=== PATIENT | female | born 1990 | race Caucasian/White ===

== ENCOUNTER 2017-11-06 03:25 | Emergency (ER) | payer SELFPAY ==
[~2017-11-06] VITALS: Ht 162.6 cm; Wt 56.7 kg
[2017-11-06 03:40] VITALS: BP 146/87
[2017-11-06] MEDS ORDERED: LORazepam Inj 2mg/ml 1ml IV ONE (03:45)
--- NOTE | 2017-11-06 03:47 | Emergency Room Report ---
History of Present Illness General Chief Complaint: General Complaint Source: Patient Present Illness HPI Patient presents with friend The friend of the patient called 911 After smoking marijuana the patient had felt strange reports that her tongue felt swollen She also had complaint of shortness of breath and paramedics were summoned Upon arrival the patient is anxious and tearful Reports that she has a sensation of doom Denies any vomiting or diarrhea denies any fevers or chills Patient does not smoke marijuana on a regular basis Allergies: Coded Allergies: No Known Allergies (Unverified , 11/06/17) Patient History Past Medical History: see triage record Pertinent Family History: none Last Menstrual Period: 11/02/17 Now: No Reviewed Nursing Documentation: PMH: Agreed; PSxH: Agreed Nursing Documentation-PMH Past Medical History: No Stated History Review of Systems All Other Systems: negative except mentioned in HPI Physical Exam Vital Signs Date Time Temp Pulse Resp B/P (MAP) Pulse Ox O2 Delivery O2 Flow Rate FiO2 11/06/17 03:24 98.1 137 20 146/87 100 Room Air 98.1 Sp02 EP Interpretation: reviewed, normal General Appearance: mild distress - Appears anxious Head: normocephalic, atraumatic Eyes: bilateral eye PERRL, bilateral eye EOMI ENT: hearing grossly normal, normal pharynx Neck: full range of motion, supple Respiratory: lungs clear Cardiovascular #1: regular rate, rhythm, no edema Gastrointestinal: non tender, soft Musculoskeletal: normal inspection, back normal Neurologic: alert, oriented x3, responsive Psychiatric: no suicidal/homicidal ideation Skin: normal color, no rash Lymphatic: no adenopathy Medical Decision Making Diagnostic Impression: Primary Impression: Marijuana abuse Additional Impression: Accidental marijuana overdose ER Course Given the patient's presentation and complaint patient had IV access established Hydration provided patient also given Ativan which helped her significantly Patient on composition floor layer remains hemodynamically stable and after prolonged observation feels improved to go home and follow closely Labs Test 11/06/17 03:50 Urine Color Pale yellow Urine Appearance Clear Urine pH 5 (4.5-8.0) Urine Specific [place] 1.015 (1.005-1.035) Urine Protein Negative (NEGATIVE) Urine Glucose (UA) Negative (NEGATIVE) Urine Ketones Negative (NEGATIVE) Urine Occult Blood 1+ (NEGATIVE) Urine Nitrite Negative (NEGATIVE) Urine Bilirubin Negative (NEGATIVE) Urine Urobilinogen Normal MG/DL (0.0-1.0) Urine Leukocyte Esterase Negative (NEGATIVE) Urine RBC 2-4 /HPF (0 - 2) Urine WBC 2-4 /HPF (0 - 2) Urine Squamous Epithelial Cells Few /LPF (NONE/OCC) Urine Bacteria Few /HPF (NONE) Urine HCG, Qualitative Negative (NEGATIVE) Rhythm Strip Diag. Results EP Interpretation: yes Rate: 77 Rhythm: NSR, no PVC's, no ectopy Last Vital Signs Date Time Temp Pulse Resp B/P (MAP) Pulse Ox O2 Delivery O2 Flow Rate FiO2 11/06/17 03:24 98.1 137 20 146/87 100 Room Air 98.1 Status: improved Disposition: HOME, SELF-CARE Condition: Improved Additional Instructions: Patient is provided with the discharge instructions notified to follow up with primary doctor in the next 2-3 days otherwise return to the er with any worsening symptoms. Please note that this report is being documented using DRAGON technology. This can lead to erroneous entry secondary to incorrect interpretation by the dictating instrument. Mirella Preston DO Nov 06, 2017 03:47
[2017-11-06 04:01] LABS: APPEARANCE,URINE CLEAR; BILIRUBIN, URINE NEGATIVE (NEGATIVE); COLOR,URINE PALE YELLOW; GLUCOSE, URINE (UA) NEGATIVE (NEGATIVE); KETONES,URINE NEGATIVE (NEGATIVE); LEUKOCYTE ESTERASE ,URINE NEGATIVE (NEGATIVE); NITRITE,URINE NEGATIVE (NEGATIVE); PH,URINE 5 (4.5-8.0); PROTEIN,URINE NEGATIVE (NEGATIVE); UROBILINOGEN,URINE NORMAL MG/DL (0.0-1.0)
[2017-11-06 04:53] VITALS: BP 133/78
[2017-11-06 05:57] VITALS: BP 128/69
[2017-11-06 06:00] VITALS: BP 128/69
== END 2017-11-06 06:00 | disposition home or self-care (01) ==
LOC: EDBD 03:25 → EMR 04:23
DX: T40.7X1A Poisoning by cannabis (derivatives), accidental (unintentional), initial encounter (principal); Y92.9 Unspecified place or not applicable; R06.02 Shortness of breath; R60.0 Localized edema
CPT/HCPCS: 81003; 81025; 99283